=== PATIENT | male | born 1990 | race Caucasian/White ===

== ENCOUNTER 2023-07-31 18:18 | Emergency (ER) | payer BC, SELFPAY ==
[2023-07-31 18:50] VITALS: BP 131/81; PULSE 110; RESP 16; TEMP 36.4; O2SAT 100
[2023-07-31 19:18] LABS: Basophils Absolute Auto 0.1 K/mm3 (0.0-0.1); Basophils Percent Auto 0.8 % (0.2-1.2); Eosinophils Absolute Auto 0.2 K/mm3 (0-0.3); Eosinophils Percent Auto 2.3 % (0-4.4); Hematocrit 45.2 % (42.0-52.0); Hemoglobin 14.8 g/dL (14.0-18.0); Immature Granulocyte Absolute 0.01 K/mm3 (0.00-0.031); Immature Granulocyte Percent A 0.2 % (0-0.5); Lymphocytes Absolute Auto 2.05 K/mm3 (0.9-3.2); Lymphocytes Percent Auto 32.1 % (18.3-44.2); Mean Corpuscular HGB Conc 32.7 g/dl (32-36); Mean Corpuscular Hemoglobin 30.1 pg (26-34); Mean Corpuscular Volume 92.1 fl (80-100); Mean Platelet Volume 9.4 fl (7.4-10.4); Monocytes Absolute Auto 0.4 K/mm3 (0.1-0.6); Monocytes Percent Auto 6.3 % (2.6-8.5); Neutrophils Absolute Auto 3.7 K/mm3 (1.3-6.7); Neutrophils Percent Auto 58.3 % (45.5-73.1); Platelet Count Result 208 k/mm3 (150-375); Red Blood Count 4.91 M/mm3 (4.6-6.20); Red Cell Distribution Width 12.4 % (11.5-14.5); White Blood Count 6.4 K/mm3 (4.5-10.0)
[2023-07-31 19:21] LABS: Appearance Urine Clear (Clear); Bilirubin Urine Negative (Negative); Blood Urine Negative (Negative); Color Urine Yellow (Yellow); Glucose Urine UA Negative (Negative); Ketones Urine Trace mg/dL (Negative); Leukocyte Esterase Ur Negative LEU/UL (Negative); Nitrate Urine Negative (Negative); Protein Urine Negative (Negative); Specific Grav Ur 1.023 (1.001-1.035)
[2023-07-31 19:27] LABS: Add Urine Microscopic? NO
[2023-07-31 19:30] LABS: Acetaminophen < 10 ug/mL (10-30); Ethanol < 10 mg/dL (<10); Salicylate < 1.0 mg/dL (2-20)
[2023-07-31 19:31] LABS: Alanine Aminotransferase 18 U/L (6-50); Albumin Level 4.4 g/dL (3.5-5.1); Alkaline Phosphatase 63 U/L (38-126); Anion Gap 7 mmol/L (8-16); Aspartate Amino Transferase 28 U/L (17-59); Bilirubin,Total 0.5 mg/dL (0.2-1.3); Blood Urea Nitrogen 14 mg/dL (9-20); Carbon Dioxide 28 mmol/L (22-30); Chloride 102 mmol/L (98-107); Estimated CRCL calculation 140 ml/min; Estimated Glomerular Filt Rate > 60; Glucose 102 mg/dL (65-110); Potassium 4.2 mmol/L (3.4-5.0); Sodium 137 mmol/L (137-145)
[2023-07-31 19:40] LABS: Amphetamine Screen Urine Negative (Negative); Barbiturate Screen Urine Negative (Negative); Benzodiazepines Screen Urine Negative (Negative); Cannabinoid Screen Urine Negative (Negative); Cocaine Screen Urine Positive (Negative); Methadone Screen Urine Negative (Negative); Opiate Screen Urine Negative (Negative); Phencyclidine Screen Urine Negative (Negative)
[2023-07-31 19:58] LABS: SARS-CoV-2 RNA PCR Negative (Negative)
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
--- NOTE | 2023-07-31 23:15 | PC.NURSE ---
[facility] states they would like to accept pt after new set of VS and EKG obtained to check QT interval. Order received from provider.
--- NOTE | 2023-07-31 23:23 | PC.NURSE ---
pt's chart faxed to [facility] and [facility].
--- NOTE | 2023-07-31 23:30 | PC.NURSE ---
Spoke with [facility] who states they want to accept. Requesting EKG and new set of VS.
[2023-07-31 23:45] VITALS: BP 115/66; PULSE 72; RESP 18; O2SAT 92
--- NOTE | 2023-08-01 | ECG_ITS ---
Measurements Intervals [place] Rate: 73 P: 63 MN: 152 QRS: 66 QRSD: 96 T: 62 QT: 386 QTc: 427 Interpretive Statements SINUS RHYTHM POSSIBLE LEFT ATRIAL ENLARGEMENT DELAYED PRECORDIAL R/S TRANSITION BORDERLINE T WAVE ABNORMALITY- ANTERIOR LEADS BORDERLINE ECG NO PREVIOUS ECG AVAILABLE FOR COMPARISON Electronically Signed On 08-01-2023 6:47:17 BOBBIN DOFFER by Pablo Teague D.O.
--- NOTE | 2023-08-01 00:11 | PC.NURSE ---
Accepted at [facility]. Awaiting RN to RN report.
--- NOTE | 2023-08-01 00:57 | PC.NURSE ---
Accepted at [facility]. Under Dr Leal. Cannot arrive until 0830-9am. Can give report after 8am. [phone].
--- NOTE | 2023-08-01 00:58 | PC.NURSE ---
[facility] in [place] declined pt.
--- NOTE | 2023-08-01 01:12 | PC.NURSE ---
[facility] accepts pt. Report called to PETER Richards. Dr Qureshi accepting to room 5334-A
--- NOTE | 2023-08-01 03:02 | PC.NURSE ---
Updated Maurice at [facility]
== END 2023-08-01 03:30 ==
PROVIDERS: Emergency Provider Physician Assistant
DX: F32.A Depression, unspecified (principal); R45.851 Suicidal ideations; F14.10 Cocaine abuse, uncomplicated; F15.10 Other stimulant abuse, uncomplicated; Z11.52 Encounter for screening for COVID-19
CPT/HCPCS: 36415; 80053; 80307; 81003; 84443; 85025; 87635; 93005; 99285